=== PATIENT | male | born 1955 | race Caucasian/White ===

== ENCOUNTER 2025-02-23 08:37 | Outpatient (OUT) | payer OTHER, SELFPAY ==
--- NOTE | 2025-02-23 08:54 | MR_ITS ---
The [address] [address] Patient Name: CHESTER SAAVEDRA MRN: [id number] date: 1955 Sex: M Assigned Patient Location: MRI Current Patient Location: MRI Accession/Order Number: [id number] Exam Date: 02/23/2025 09:00 Report Date: 02/23/2025 10:48 At the request of: NON-STAFF PHYSICIAN Procedure: MR lumbar spine wo con MRI lumbar spine performed without contrast INDICATION: Chronic lumbar pain with mild radiculopathy, lumbar pain radiating into left leg for 3 months with left leg numbness COMPARISON: None FINDINGS: Lumbar vertebral heights and alignment and bone marrow signal is unremarkable. Vertebral body hemangioma involving much of the L2 vertebral body noted. Mild intervertebral space narrowing notably L5-S1. Multilevel facet arthropathy moderate severe L4-S1. Diffuse epidural abscess identified. Conus medullaris terminates normally at the superior plate of L2. Paraspinal soft tissues demonstrate left-sided paraspinal soft tissues are unremarkable T12-L1: Not visualized on axial images. Unremarkable as visualized sagittal imaging. L1-2: Minor broad-based disc bulge. Mild facet arthropathy. Right foramen patent. Minor left foraminal narrowing. L2-3: Broad-based disc bulge with minimal endplate osteophytes. Moderate facet arthropathy. Slight prominence of the epidural fat causing mild to moderate canal narrowing. L3-4: Broad-based disc bulge with moderate facet arthropathy. Mild ligamentum flavum flavum hypertrophy. Diffuse prominence of the epidural fat causing moderate central canal narrowing. L4-5: Disc desiccation with moderate severe facet arthropathy. There is a synovial cyst identified arising from both facet joints measuring 5 mm size on the right and foramina size the left on the axial images. These appear to be causing subarticular recess narrowing right greater than left, correlate with right greater than left L5 radiculopathy. There is prominence of the epidural fat causing moderate central canal narrowing. Mild right-sided and [id number] left-sided neural from narrowing. L5-S1: Circumferential disc bulge with right foraminal zone T2 hyperintensities suggestive of a focal fissure. There is moderate severe right and moderate left-sided arthropathy. Prominence of the epidural fat noted. Moderate canal narrowing as well.. MR/MR lumbar spine wo con IMPRESSION: Moderate to severe right and moderate left subarticular recess narrowing due to synovial cysts posterior element degeneration at L4-5, correlate with bilateral right greater than left L5 radiculopathy. Multilevel epidural lipomatosis causing up to moderate multilevel canal narrowing. Otherwise no high-grade canal or neural foraminal narrowing identified. Moderate severe facet arthropathy notably L4-S1. Impression dictated by: Malvin Mathis M.D. 02/23/2025 10:48 AM Dictation Location: [place] [id number] Electronically authenticated by: [id number] Date: 02/23/2025 10:48
== END 2025-02-23 08:38 | disposition home or self-care (01) ==
LOC: MRI 08:42
PROVIDERS: Family Provider Family Medicine
DX: M54.16 Radiculopathy, lumbar region (principal); M47.816 Spondylosis without myelopathy or radiculopathy, lumbar region
CPT/HCPCS: 72148